=== PATIENT | female | born 1950 | race Two or more races ===

== ENCOUNTER → 2024-10-29 | Outpatient (CLI) | payer MEDICARE, MEDICAID, SELFPAY ==
--- NOTE | 2024-10-29 14:00 | XR_ITS ---
Examination: Bone densitometry Date and time of exam:October 29, 2024 1410 hours INDICATIONS: Menopause age 46 postmenopausal lumbar spine fracture 20 years ago Technique: Lumbar spine and hip total bone mineralization values of an calculated. Peak reference and age match control results have been displayed. Findings: Lumbar spine total bone mineralization is0.918 gm/cm2. This is 1.2 standard deviations below peak reference. This is 1.3 standard deviations above age-matched controls. Hip total bone mineralization is 0.963 gm/cm2 This is 0.0 standard deviations at peak reference. This is 1.9 standard deviations above age-matched controls Impression: There is osteopenia based on lumbar spine measurements. There is normal mineralization based on hip measurements Lumbar mineralization is increased 1.6% compared with February 03, 2022 Hip mineralization is decreased 0.9% compared with February 03, 2022
== END | disposition home or self-care (01) ==
LOC: CDIM 13:37
PROVIDERS: Referring Provider Pediatrics; Visit Provider Pediatrics
DX: Z13.820 Encounter for screening for osteoporosis (principal); M85.88 Other specified disorders of bone density and structure, other site
CPT/HCPCS: 77080

== ENCOUNTER → 2025-04-26 | Outpatient (CLI) | payer MEDICARE, MEDICAID, SELFPAY ==
[2025-04-26 10:33] LABS: Basophils # (Auto) 0.1 Thou/mm3 (0.0-0.2); Basophils % (Auto) 1 % (0-2.5); Eosinophils # (Auto) 0.2 Thou/mm3 (0.0-0.5); Eosinophils % (Auto) 3 % (0-10); Hematocrit 41.7 % (36.0-46.0); Hemoglobin 13.5 g/dL (12.0-16.0); Immature Granulocytes Auto 0.03 Thou/mm3 (0.00-0.00); Lymphocytes # (Auto) 3.4 Thou/mm3 (1.0-4.8); Lymphocytes % (Auto) 44 % (10-50); Mean Corpuscular HGB Conc 32.4 g/dl (31.0-37.0); Mean Corpuscular Hemoglobin 28.2 pg (25.0-35.0); Mean Corpuscular Volume 87 fL (80-100); Monocytes # (Auto) 0.8 Thou/mm3 (0.0-0.8); Monocytes % (Auto) 11 % (0-12); Neutrophils # (Auto) 3.3 Thou/mm3 (1.8-7.7); Neutrophils % (Auto) 42 % (37-80); Nucleated Red Blood Cell # 0.00 Thou/mm3 (0.00-0.00); Nucleated Red Blood Cell % 0 /100 WBC (0); Platelet Count 363 Thou/mm3 (140-440); RDW Standard Deviation 49.7 fL (36.4-46.3); Red Blood Count 4.79 Miln/mm3 (4.00-5.20); White Blood Count 7.8 Thou/mm3 (3.6-11.0)
[2025-04-26 10:44] LABS: Glucose Estimated Average 232 mg/dL (80-131); Hemoglobin A1C 9.7 % Hgb (4.8-6.0)
[2025-04-26 10:53] LABS: Alanine Aminotransferase 79 U/L (10-49); Albumin, Serum 4.2 gm/dL (3.4-4.8); Albumin/Globulin Ratio 1.9 (1.2-2.2); Alkaline Phosphatase 51 U/L (46-116); Anion Gap 9 (7-16); Aspartate Amino Transferase 85 U/L (0-34); BUN/Creatinine Ratio 14 Ratio (12-20); Bilirubin,Total 1.1 mg/dL (0.3-1.2); Blood Urea Nitrogen 14 mg/dL (9-23); Calcium 9.5 mg/dL (8.3-10.6); Calcium (Corrected) 9.5 mg/dL (8.5-10.1); Carbon Dioxide 27.8 mMol/L (20.0-31.0); Chloride 103 mMol/L (98-107); Creatinine (Component) 1.0 mg/dL (0.6-1.3); Folate 17.60 ng/mL (>5.38); Free T4 (Free Thyroxine) 1.17 ng/dL (0.89-1.76); Globulin 2.2 gm/dL (2.3-3.5); Glucose 187 mg/dL (74-106); Osmolality,Calculated 284 (275-295); Potassium 4.8 mMol/L (3.4-5.1); Sodium 140 mMol/L (136-145); Thyroid Stimulating Hormone 3.43 uIU/mL (0.55-4.78); Total Protein 6.4 gm/dL (5.7-8.2); Vitamin B12 296 pg/mL (211-911); Vitamin D 25 Hydroxy Total 32.9 ng/mL (7.3-40.2); eGFR 58 See Note
== END | disposition home or self-care (01) ==
LOC: COPL 09:12
PROVIDERS: PCP Registered Nurse Community Health; Referring Provider Internal Medicine; Visit Provider Internal Medicine
DX: Z00.00 Encounter for general adult medical examination without abnormal findings (principal); A04.8 Other specified bacterial intestinal infections; B37.0 Candidal stomatitis; B37.9 Candidiasis, unspecified; D28.0 Benign neoplasm of vulva; E11.65 Type 2 diabetes mellitus with hyperglycemia; E53.8 Deficiency of other specified B group vitamins; F33.1 Major depressive disorder, recurrent, moderate; F41.1 Generalized anxiety disorder; G43.111 Migraine with aura, intractable, with status migrainosus; G44.209 Tension-type headache, unspecified, not intractable; G47.00 Insomnia, unspecified; H60.393 Other infective otitis externa, bilateral; H60.503 Unspecified acute noninfective otitis externa, bilateral; H65.93 Unspecified nonsuppurative otitis media, bilateral; H66.93 Otitis media, unspecified, bilateral; I10 Essential (primary) hypertension; J01.90 Acute sinusitis, unspecified; J30.2 Other seasonal allergic rhinitis; J30.89 Other allergic rhinitis; J32.4 Chronic pansinusitis; K21.9 Gastro-esophageal reflux disease without esophagitis; K58.0 Irritable bowel syndrome with diarrhea; K59.04 Chronic idiopathic constipation; K65.1 Peritoneal abscess; L30.9 Dermatitis, unspecified; M19.90 Unspecified osteoarthritis, unspecified site; M25.511 Pain in right shoulder; M25.551 Pain in right hip; M25.571 Pain in right ankle and joints of right foot; M46.1 Sacroiliitis, not elsewhere classified; M51.362 Other intervertebral disc degeneration, lumbar region with discogenic back pain and lower extremity pain; M54.50 Low back pain, unspecified; M79.671 Pain in right foot; M79.7 Fibromyalgia; M79.89 Other specified soft tissue disorders; M85.88 Other specified disorders of bone density and structure, other site; N39.0 Urinary tract infection, site not specified; N89.8 Other specified noninflammatory disorders of vagina; R05.9 Cough, unspecified; R07.0 Pain in throat; R10.13 Epigastric pain; R10.2 Pelvic and perineal pain; R19.02 Left upper quadrant abdominal swelling, mass and lump; R42 Dizziness and giddiness; R76.8 Other specified abnormal immunological findings in serum; R79.89 Other specified abnormal findings of blood chemistry; Z11.59 Encounter for screening for other viral diseases; Z12.11 Encounter for screening for malignant neoplasm of colon; Z12.31 Encounter for screening mammogram for malignant neoplasm of breast; Z12.4 Encounter for screening for malignant neoplasm of cervix; Z13.820 Encounter for screening for osteoporosis; Z23 Encounter for immunization; Z71.2 Person consulting for explanation of examination or test findings; Z78.0 Asymptomatic menopausal state
CPT/HCPCS: 36415; 80053; 82306; 82607; 82746; 83036; 84439; 84443; 85025

== ENCOUNTER → 2025-07-04 | Outpatient (CLI) | payer MEDICARE, MEDICAID, SELFPAY ==
[2025-07-04 12:18] LABS: Basophils # (Auto) 0.1 Thou/mm3 (0.0-0.2); Basophils % (Auto) 1 % (0-2.5); Eosinophils # (Auto) 0.1 Thou/mm3 (0.0-0.5); Eosinophils % (Auto) 1 % (0-10); Hematocrit 43.1 % (36.0-46.0); Hemoglobin 14.0 g/dL (12.0-16.0); Immature Granulocytes Auto 0.08 Thou/mm3 (0.00-0.00); Lymphocytes # (Auto) 4.5 Thou/mm3 (1.0-4.8); Lymphocytes % (Auto) 40 % (10-50); Mean Corpuscular HGB Conc 32.5 g/dl (31.0-37.0); Mean Corpuscular Hemoglobin 27.9 pg (25.0-35.0); Mean Corpuscular Volume 86 fL (80-100); Monocytes # (Auto) 1.0 Thou/mm3 (0.0-0.8); Monocytes % (Auto) 9 % (0-12); Neutrophils # (Auto) 5.6 Thou/mm3 (1.8-7.7); Neutrophils % (Auto) 50 % (37-80); Nucleated Red Blood Cell # 0.00 Thou/mm3 (0.00-0.00); Nucleated Red Blood Cell % 0 /100 WBC (0); Platelet Count 401 Thou/mm3 (140-440); RDW Standard Deviation 49.0 fL (36.4-46.3); Red Blood Count 5.02 Miln/mm3 (4.00-5.20); White Blood Count 11.3 Thou/mm3 (3.6-11.0)
[2025-07-04 12:31] LABS: Glucose Estimated Average 206 mg/dL (80-131); Hemoglobin A1C 8.8 % Hgb (4.8-6.0)
[2025-07-04 12:32] LABS: Creatinine MALB Rnd Ur 76 mg/dL (30-125); Microalbumin Creat Ratio 7 mg/gCrea (<30); Microalbumin, Random Urine 5 mg/L (0-300)
[2025-07-04 12:42] LABS: Alanine Aminotransferase 59 U/L (10-49); Albumin, Serum 4.8 gm/dL (3.4-4.8); Albumin/Globulin Ratio 2.4 (1.2-2.2); Alkaline Phosphatase 62 U/L (46-116); Anion Gap 10 (7-16); Aspartate Amino Transferase 48 U/L (0-34); BUN/Creatinine Ratio 13 Ratio (12-20); Bilirubin,Total 0.9 mg/dL (0.3-1.2); Blood Urea Nitrogen 14 mg/dL (9-23); Calcium 9.6 mg/dL (8.3-10.6); Calcium (Corrected) 9.6 mg/dL (8.5-10.1); Carbon Dioxide 29.9 mMol/L (20.0-31.0); Cardiac Risk Estimate 1.9 RATIO (3.7-5.6); Chloride 101 mMol/L (98-107); Cholesterol 132 mg/dL (132-200); Creatinine (Component) 1.1 mg/dL (0.6-1.3); Globulin 2.0 gm/dL (2.3-3.5); Glucose 139 mg/dL (74-106); HDL Cholesterol 71 mg/dL (40-60); LDL Cholesterol,Calculated 39 mg/dL (0-130); Osmolality,Calculated 283 (275-295); Potassium 4.9 mMol/L (3.4-5.1); Sodium 141 mMol/L (136-145); Total Protein 6.8 gm/dL (5.7-8.2); Triglycerides 111 mg/dL (30-150); eGFR 52 See Note
[2025-07-04 12:59] LABS: Vitamin B12 > 2000 pg/mL (211-911)
== END | disposition home or self-care (01) ==
LOC: S2EX 11:03 → SLAB 07-09 06:29
PROVIDERS: PCP Registered Nurse Community Health; Referring Provider Registered Nurse Community Health; Visit Provider Internal Medicine
DX: Z00.00 Encounter for general adult medical examination without abnormal findings (principal); E11.65 Type 2 diabetes mellitus with hyperglycemia; A04.8 Other specified bacterial intestinal infections; B37.0 Candidal stomatitis; B37.9 Candidiasis, unspecified; D28.0 Benign neoplasm of vulva; E53.8 Deficiency of other specified B group vitamins; F33.1 Major depressive disorder, recurrent, moderate; F41.1 Generalized anxiety disorder; G43.111 Migraine with aura, intractable, with status migrainosus; G44.209 Tension-type headache, unspecified, not intractable; G47.00 Insomnia, unspecified; H60.393 Other infective otitis externa, bilateral; H60.503 Unspecified acute noninfective otitis externa, bilateral; H65.93 Unspecified nonsuppurative otitis media, bilateral; H66.93 Otitis media, unspecified, bilateral; I10 Essential (primary) hypertension; J01.90 Acute sinusitis, unspecified; J30.2 Other seasonal allergic rhinitis; J30.89 Other allergic rhinitis; J32.4 Chronic pansinusitis; K21.9 Gastro-esophageal reflux disease without esophagitis; K58.0 Irritable bowel syndrome with diarrhea; K58.1 Irritable bowel syndrome with constipation; K59.04 Chronic idiopathic constipation; K65.1 Peritoneal abscess; L30.9 Dermatitis, unspecified; M19.90 Unspecified osteoarthritis, unspecified site; M25.511 Pain in right shoulder; M25.571 Pain in right ankle and joints of right foot; M46.1 Sacroiliitis, not elsewhere classified; M51.362 Other intervertebral disc degeneration, lumbar region with discogenic back pain and lower extremity pain; M54.50 Low back pain, unspecified; M79.671 Pain in right foot; M79.7 Fibromyalgia; M79.89 Other specified soft tissue disorders; M85.88 Other specified disorders of bone density and structure, other site; N39.0 Urinary tract infection, site not specified; N89.8 Other specified noninflammatory disorders of vagina; R05.9 Cough, unspecified; R07.0 Pain in throat; R10.13 Epigastric pain; R19.02 Left upper quadrant abdominal swelling, mass and lump; R42 Dizziness and giddiness; R79.89 Other specified abnormal findings of blood chemistry; Z11.59 Encounter for screening for other viral diseases; Z12.31 Encounter for screening mammogram for malignant neoplasm of breast; Z12.4 Encounter for screening for malignant neoplasm of cervix; Z13.820 Encounter for screening for osteoporosis; Z23 Encounter for immunization; Z71.2 Person consulting for explanation of examination or test findings; Z78.0 Asymptomatic menopausal state; M25.551 Pain in right hip
CPT/HCPCS: 36415; 80053; 80061; 82043; 82570; 82607; 83036; 85025